=== PATIENT | male | born 1980 | race African-American/Black ===

== ENCOUNTER 2016-12-06 23:18 | Emergency (ER) | payer MEDICAID ==
[~2016-12-06] VITALS: Ht 190.5 cm; Wt 98.0 kg
[2016-12-07] MEDS ORDERED: MAGNESIUM/ALUMINUM HYDROXIDE/SIMETHICONE 30ML UDC PO STA (00:43)
[2016-12-07] MEDS ORDERED: VISCOUS LIDOCAINE 2% 15 ML UDC MM ONE (00:45)
[2016-12-07 00:51] VITALS: BP 116/74
[2016-12-07 01:08] LABS: BASOPHILS % 0.4 % (0.0-2.0); EOSINOPHILS % 1.2 % (0.0-5.0); HEMATOCRIT. 44.4 % (42.0-52.0); HEMOGLOBIN. 14.8 g/dL (14.0-18.0); LYMPHOCYTES % 36.5 % (20.0-50.0); MEAN CORPUSCULAR HEMOGLOBIN 30.8 pg (28.0-32.0); MEAN CORPUSCULAR HGB CONC 33.3 g/dL (31.0-37.0); MEAN CORPUSCULAR VOLUME 92.4 fL (80.0-94.0); MEAN PLATELET VOLUME 7.9 fl (7.4-10.4); MONOCYTES % 9.7 % (2.0-8.0); NEUTROPHILS % 52.2 % (40.0-76.0); PLATELET 217 x1000/uL (130-400); RED CELL DISTRIBUTION WIDTH 14.1 % (11.6-14.6); WHITE BLOOD COUNT 7.1 x1000/uL (4.5-11.0)
[2016-12-07 01:16] LABS: PARTIAL THROMBOPLASTIN TIME 28.5 sec (24.0-34.0); PROTHROMBIN TIME 10.6 sec
[2016-12-07 01:34] LABS: ALANINE AMINOTRANSFERASE 20 IU/L (13-61); ANION GAP 12; CARBON DIOXIDE 29 mEq/L (21-32); CHLORIDE 102 mEq/L (98-107); INDEX HEMOLYSI 1 (1-3); INDEX ICTERIC 1 (1-4); INDEX LIPEMIC 1 (1-3); LIPASE 106 IU/L (73-393); UREA NITROGEN BLOOD 10 mg/dL (7-21); eGFR > 60 mL/min (>60)
== END 2016-12-07 02:26 | disposition home or self-care (01) ==
LOC: ER 23:18
DX: R07.89 Other chest pain (principal); Z87.891 Personal history of nicotine dependence
CPT/HCPCS: 36415; 71010; 80053; 83690; 85025; 85610; 85730; 93005; 99285; Z7610

== ENCOUNTER 2017-07-09 11:39 | Emergency (ER) | payer MEDICAID, OTHER ==
[~2017-07-09] VITALS: Ht 188 cm; Wt 100.0 kg
[2017-07-09] MEDS ORDERED: ONDANSETRON HCL 4MG/2ML VIAL IV STA (12:19)
[2017-07-09] MEDS ORDERED: MORPHINE SULFATE 4 MG/ML CPJ (NOT FOR IM USE) IV STA (12:19)
[2017-07-09] MEDS ORDERED: MORPHINE SULFATE 10 MG/ML CPJ IV NR (12:50)
[2017-07-09 13:02] VITALS: BP 118/88
[2017-07-09 13:06] LABS: D-DIMER 0.38 mg/L FEU (<0.50); PARTIAL THROMBOPLASTIN TIME 29.7 sec (23.4-31.0); PROTHROMBIN TIME 10.8 sec (9.4-11.6)
[2017-07-09 13:10] LABS: CARBON DIOXIDE 29 mEq/L (21-32); CHLORIDE 98 mEq/L (98-107); TROPONIN I < 0.02 ng/mL (0.00-0.04)
[2017-07-09 13:14] LABS: HEMATOCRIT. 52.2 % (42.0-52.0); HEMOGLOBIN. 17.1 g/dL (14.0-18.0); MEAN CORPUSCULAR HEMOGLOBIN 30.8 pg (28.0-32.0); MEAN CORPUSCULAR VOLUME 93.9 fL (80.0-94.0); MEAN PLATELET VOLUME 8.8 fl (7.4-10.4); PLATELET 199 x1000/uL (130-400); RED BLOOD CELL COUNT 5.56 mill/uL (4.7-6.1); RED CELL DISTRIBUTION WIDTH 14.7 % (11.6-14.6)
[2017-07-09] MEDS ORDERED: SODIUM CHLORIDE 0.9% 1,000 ML IV ONE (13:27)
[2017-07-09 14:02] LABS: PLATELET ESTIMATE NORMAL
[2017-07-09] MEDS ORDERED: IOHEXOL-350 100 ML BOTTLE ONE (16:09)
== END 2017-07-09 16:15 | disposition home or self-care (01) ==
LOC: ER 12:35
DX: K21.9 Gastro-esophageal reflux disease without esophagitis (principal); E86.0 Dehydration; N28.9 Disorder of kidney and ureter, unspecified; D72.825 Bandemia; Z72.0 Tobacco use; R07.0 Pain in throat
CPT/HCPCS: 36415; 71010; 71275; 80053; 83605; 83690; 83880; 84484; 85025; 85379; 85610; 85730; 93005; 96361; 96374; 96375; 99285; J2270; J2405; J7030; Q9967